=== PATIENT | female | born 1990 | race Caucasian/White ===

== ENCOUNTER 2016-07-06 03:28 | Emergency (ER) | payer OTHER ==
[~2016-07-06] VITALS: Ht 162.6 cm; Wt 72.7 kg
[~2016-07-06 03:28] MED LIST: ANTIBIOTIC; BACTRIM,SEPT1 TABLET PO; MOTRIN800 MG PO; NOHOMEMEDS; SUBOXONE 8 MG-1 EAC2 SL; SUBOXONE SL
[2016-07-06 04:48] VITALS: BP 128/78
== END 2016-07-06 04:49 | disposition home or self-care (01) ==
LOC: EME 03:28
PROC: 3E0234Z Introduction of Serum, Toxoid and Vaccine into Muscle, Percutaneous Approach (ICD-10-PCS; principal; 2016-07-06)
DX: S00.01XA Abrasion of scalp, initial encounter (principal); S63.502A Unspecified sprain of left wrist, initial encounter; W10.8XXA Fall (on) (from) other stairs and steps, initial encounter; Z23 Encounter for immunization
CPT/HCPCS: 73110; 99281; 99283